=== PATIENT | female | born 1995 | race Caucasian/White ===

== ENCOUNTER 2018-08-01 14:57 | Emergency (ER) | payer BC, OTHER ==
[2018-08-01 15:05] VITALS: BP 155/95; PULSE 99; TEMP 98.6; BMI 46.5
--- NOTE | 2018-08-01 15:58 | PDOC ---
History of Present Illness - General Chief Complaint: Psychiatric Stated Complaint: i feel anxious Time Seen by Provider: 08/01/18 15:07 History Source: Patient Exam Limitations: No Limitations - History of Present Illness Initial Comments: 08/01/18 15:57 23y M hx of anxiety presents with anxiety. Pt states she has felt stressed since halloween due to work stressors and having recently ended a relationship. The patient notes that she has felt occasional palpitations, feeling very anxious, tearful, " short of breath". Patient states she has gone to her PMD referred to a psychiatrist however she has been unable to schedule appointment with a psychiatrist. She states she has gone to an urgent care recently for similar symptoms and had an EKG and CXR that was normally and was told to ' focus on her breathing'. Today the patient felt some palpitations a she [facility] who referred her to [facility]. Pt notes that when she focuses on her breathing, she occasionallly feels like she cant take a deep enough breath. She denies feeling out of breathw hen she is walking around or ambulating. She dnies any fever/chills, cough, hemoptysis, leg swelling, calf pain, abd pain, n/v, back pain, pleutic cp. The patient denies any thoughts of harming herself or others Past History - Past Medical History Allergies/Adverse Reactions: Allergies Allergy/AdvReac Type Severity Reaction Status Date / Time No Known Allergies Allergy Verified 08/01/18 14:57 Home Medications: Ambulatory Orders Control 0 mg PO DAILY 08/01/18 COPD: No Other medical history: denies - Suicide/Smoking/Psychosocial Hx Smoking History: Never smoked Hx Alcohol Use: No Drug/Substance Use Hx: Yes Substance Use Type: Marijuana Review of Systems - Review of Systems Able to Perform ROS?: Yes Comments:: 08/01/18 16:31 Constitutional - no reported Fever, Chills, HEENT: no reported vision changes, sore throat Respiratory: +sob no reported cough, hemoptysis Cardiac: no reported chest pain, palpitations, light headedness, leg swelling Abd/GI: no reported abd pain, nausea, vomiting, blood per rectum, melena, diarrhea : no reported dysuria, frequency, discharge Musculskelatal - no reported back pain, joint swelling skin - no reported bruising, erythema, rash neurological: no reported headache, numbness, focal weakness, tingling, ataxia, hematologic: no reported easy bruising, easy bleeding *Physical Exam - Vital Signs Last Vital Signs Temp Pulse Resp BP Pulse Ox 98.6 F 99 H 20 155/95 99 08/01/18 14:57 08/01/18 14:57 08/01/18 14:57 08/01/18 14:57 08/01/18 14:57 - Physical Exam Comments: 08/01/18 16:31 GENERAL: The patient is awake, alert, and fully oriented, Nontoxic - in no acute distress. HEAD: Normocephalic, atraumatic. EYES: extraocular movements intact, sclera anicteric, conjunctiva clear. ENT: Normal voice, Moist mucous membranes. NECK: Normal range of motion, supple LUNGS: Breath sounds equal, clear to auscultation bilaterally. No wheezes, no rhonchi, no rales. HEART: Regular rate and rhythm, normal S1 and S2 without murmur, rub or gallop. ABDOMEN: Soft, nontender, normoactive bowel sounds. No guarding, no rebound. . No CVA tenderness EXTREMITIES: Normal range of motion, no edema. No calf tenderness, negative Homans sign NEUROLOGICAL: No facial assymetry, Normal speech, PSYCH: Normal mood, tearful affect SKIN: Warm, Dry, normal turgor, Heart Score/ECG Review - ECG Impressions Comment:: 08/01/18 16:47 Twelve-lead EKG was performed and reviewed by me. There is normal sinus rhythm with a normal rate. Rate of 86 The axis is normal. The intervals are normal. There is normal R wave progression There are no ST or T wave abnormalities. Impression: Normal twelve-lead EKG Medical Decision Making - Medical Decision Making 08/01/18 16:31 Suspect the patient's secondary to anxiety, stress response due to work and home stressors. The patient does not actually feel short of breath it is more that she is unable to "take a complete breath" occasionally - no dyspnea exertion, hemoptysis, leg swelling, chest pain to suggest PE. The patient is able to speak in very long paragraphs without any shortness of breath or dyspnea. Will obtain EKG to screen for arrhythmia. Discussed coping mechanisms with the patient - she appears to have a very solid support network living with her family and with a close friend who is with the patient right now. Anticipate discharge with PMD follow-up. Patient has made contact with the mental health clinic at [facility] and will make an appointment. 08/01/18 16:47 EKG is unremarkable will discharge patient with mental health follow-up as an outpatient. Return preautions were discussed I discussed the physical exam findings, ancillary test results and final diagnoses with the patient. I answered all of the patient's questions. The patient was satisfied with the care received and felt comfortable with the discharge plan and treatment plan. The patient will call their primary care physician within 24 hours to arrange follow-up and will return to the Emergency Department with any new, persistent or worsening symptoms. *DC/Admit/Observation/Transfer Diagnosis at time of Disposition: Anxiety - Discharge Dispostion Disposition: HOME Condition at time of disposition: Improved Decision to Admit order: No - Referrals Referrals: Jyoti Marlow MD [Non Staff, Medical] - - Patient Instructions Printed Discharge Instructions: DI for Anxiety -- Adult Additional Instructions: Return to the emergency department immediately with ANY new, persistent or worsening symptoms including worsening chest pain, shortness of breath when you' re walking around, he will coughing up blood or any other concerns. You MUST call and follow up with your doctor and the mental health clinic for further evaluation of your symptoms. Results were discussed with you. Please make sure your doctor reviews the results of your emergency evaluation. Print Language: URDU - Post Discharge Activity
--- NOTE | 2018-08-05 23:53 | EKG ---
Test Reason : Blood Pressure : / mmHG Vent. Rate : 086 BPM Atrial Rate : 086 BPM P-R Int : 134 ms QRS Dur : 080 ms QT Int : 346 ms P-R-T Axes : 027 016 016 degrees QTc Int : 414 ms NORMAL SINUS RHYTHM NORMAL ECG NO PREVIOUS ECGS AVAILABLE Confirmed by LIANE MAYER MD ([id number]) on 08/05/2018 11:52:38 PM Referred By: DR MCDONALD Confirmed By:LIANE MAYER MD
== END 2018-08-01 16:57 | disposition home or self-care (01) ==
LOC: FER 14:57
DX: F41.9 Anxiety disorder, unspecified (principal)
CPT/HCPCS: 93005; 99282-25